=== PATIENT | female | born 1980 | race Caucasian/White ===

== ENCOUNTER 2020-09-23 11:59 | Outpatient (CLI) | payer OTHER, SELFPAY ==
--- NOTE | ~2020-09-23 | MM_ITS ---
EXAMINATION: MM screening be BI w genevieve HISTORY: Screening mammogram TECHNIQUE: Craniocaudal and mediolateral oblique 3-D tomosynthesis images were obtained and synthetic 2-D images were generated. CAD analysis was submitted and interpreted. COMPARISON: No prior mammogram is available for comparison at this institution. BREAST PARENCHYMAL COMPOSITION: The breasts are almost entirely fatty. FINDINGS: There is no evidence of suspicious mass, calcification, or architectural distortion to sugg est malignancy in either breast. There has been no suspicious interval change. IMPRESSION: 1. No mammographic evidence of malignancy. 2. Recommend routine screening mammography in one year. BI-RADS Category 1: Negative Reviewed, dictated and finalized at location A. PROFIT DIRECTOR
== END 2020-09-23 12:00 | disposition home or self-care (01) ==
LOC: ANHIMG 12:01
PROVIDERS: PCP Physician Assistant; Visit Provider Physician Assistant
DX: Z12.31 Encounter for screening mammogram for malignant neoplasm of breast (principal)
CPT/HCPCS: 77063; 77067

== ENCOUNTER 2022-12-20 13:20 | Outpatient (CLI) | payer OTHER, SELFPAY ==
--- NOTE | ~2022-12-20 | MMUS_ITS ---
EXAMINATION: MM diagnostic be BI w genevieve, US breast LT limited HISTORY: Palpable left breast lump TECHNIQUE: Additional 3-D tomosynthesis images of the breasts were performed and synthetic 2-D images were generated. CAD analysis was submitted and interpreted. High resolution Limited left breast ultr asound was performed. COMPARISON: No prior studies for comparison. BREAST PARENCHYMAL COMPOSITION: BREAST PARENCHYMAL COMPOSITION: There are scattered areas of fibroglandular density. FINDINGS: MAMMOGRAPHIC FINDINGS: There are no suspicious masses, calcifications or architectural distortion. No suspicious interval ch [place]. ULTRASOUND: Limited left breast ultrasound: At 2:30, 5 cm from the nipple, there is a normal-appearing 8 mm intra mammary lymph node. No suspicious masses to suggest malignancy. IMPRESSION: 1. No evidence for malignancy in either breast. Benign finding. 2. Routine yearly screening mammogram and regular clinical breast examination are recommended. BI-RADS Category 2: Benign finding(s). Reviewed, dictated and finalized at location [facility]. IMPRESSION: 1. No evidence for malignancy in either breast. Benign finding. 2. Routine yearly screening mammogram and regular clinical breast examination a re recommended. BI-RADS Category 2: Benign finding(s).
== END 2022-12-20 13:21 | disposition home or self-care (01) ==
LOC: ANHIMG 13:26
PROVIDERS: PCP Physician Assistant; Visit Provider Physician Assistant
DX: G56.03 Carpal tunnel syndrome, bilateral upper limbs (principal); N63.20 Unspecified lump in the left breast, unspecified quadrant
CPT/HCPCS: 76642; 77062; 77066; G0279

== ENCOUNTER 2023-01-18 10:06 | Outpatient (CLI) | payer OTHER, SELFPAY ==
--- NOTE | 2023-01-18 11:00 | NEURO_ITS ---
Impression: # Complains of pain in both hands, right more than left. # Bilateral Carpal Tunnel Syndrome. # Right ulnar neuropathy across the elbow. # Abnormal needle/EMG exam. Nerve Conduction Studies Anti Sensory Summary Table Stim Site NR Peak (ms) P-T Amp (?V) Site1 Site2 Delta-P (ms) Dist (cm) Bryn (m/s) Left Median Anti Sensory (2-3nd Digit) Wrist 5.9 16.3 Wrist 2-3nd Digit 5.9 14.0 24 Wrist 4.5 7.2 Wrist 2-3nd Digit 5.9 14.0 24 Right Median Anti Sensory (2-3nd Digit) Wrist 5.6 10.7 Wrist 2-3nd Digit 5.6 14.0 25 Wrist 7.0 17.5 Wrist 2-3nd Digit 5.6 14.0 25 Left Radial Anti Sensory (Base 1st Digit) Wrist 1.7 64.7 Wrist Base 1st Digit 1.7 0.0 Right Radial Anti Sensory (Base 1st Digit) Wrist 2.0 21.4 Wrist Base 1st Digit 2.0 0.0 Left Ulnar Anti Sensory (5th Digit) Wrist 2.3 56.7 Wrist 5th Digit 2.3 14.0 61 Right Ulnar Anti Sensory (5th Digit) Wrist 2.8 48.6 Wrist 5th Digit 2.8 14.0 50 Motor Summary Table Stim Site NR Onset (ms) O-P Amp (mV) Site1 Site2 Delta-0 (ms) Dist (cm) Bryn (m/s) Left Median Motor (Abd Poll Brev) Wrist 5.3 1.3 Elbow Wrist 4.6 29.0 63 Elbow 9.9 1.8 Right Median Motor (Abd Poll Brev) Wrist 4.1 4.2 Elbow Wrist 5.4 29.0 54 Elbow 9.5 2.3 Left Ulnar Motor (Abd Dig Minimi) Wrist 2.3 4.6 A Elbow Wrist 4.7 29.0 62 A Elbow 7.0 4.6 Right Ulnar Motor (Abd Dig Minimi) Wrist 2.5 7.5 A Elbow Wrist 5.5 29.0 53 A Elbow 8.0 5.7 B Elbow Wrist 3.8 21.0 55 B Elbow 6.3 5.2 F Wave Studies NR F-Lat (ms) L-R F-Lat (ms) Left Median (Mrkrs) (Abd Poll Brev) 30.12 1.46 Right Median (Mrkrs) (Abd Poll Brev) 28.65 1.46 Left Ulnar (Mrkrs) (Abd Dig Min) 26.41 0.26 Right Ulnar (Mrkrs) (Abd Dig Min) 26.67 0.26 EMG Side Muscle Nerve Root Ins Act Fibs Amp Dur Recrt Comment Right 1stDorInt Ulnar C8-T1 Nml Nml Nml Nml Nml Right Ext Indicis Radial (Post Int) C7-8 Nml Nml Nml Nml Nml Right Ext Digitorum Radial (Post Int) C7-8 Nml Nml Nml Nml Nml Right BrachioRad Radial C5-6 Nml Nml Nml Nml Nml Right PronatorTeres Median C6-7 Nml Nml Nml Nml Nml Right Abd Poll Brev Median C8-T1 Nml Nml Nml >12ms Reduced Left 1stDorInt Ulnar C8-T1 Nml Nml Nml Nml Nml Left Ext Indicis Radial (Post Int) C7-8 Nml Nml Nml Nml Nml Left Ext Digitorum Radial (Post Int) C7-8 Nml Nml Nml Nml Nml Left BrachioRad Radial C5-6 Nml Nml Nml Nml Nml Left PronatorTeres Median C6-7 Nml Nml Nml Nml Nml Left Abd Poll Brev Median C8-T1 Nml Nml Nml >12ms Reduced Right ABD Dig Min Ulnar C8-T1 Nml Nml Nml >12ms Reduced Left ABD Dig Min Ulnar C8-T1 Nml Nml Nml Nml Nml MTDD
== END 2023-01-18 10:07 | disposition home or self-care (01) ==
LOC: ANHNEURO 10:07
PROVIDERS: PCP Physician Assistant; Visit Provider Physician Assistant
DX: G56.03 Carpal tunnel syndrome, bilateral upper limbs (principal); G56.21 Lesion of ulnar nerve, right upper limb
CPT/HCPCS: 95886; 95911

== ENCOUNTER 2023-07-13 22:05 | Emergency (ER) | payer OTHER, SELFPAY ==
--- NOTE | ~2023-07-13 | CT_ITS ---
CT of the Abdomen and Pelvis: Indication: Vaginal bleeding Technique: 2.5 mm axial scans were obtained through the abdomen and pelvis following intravenous adm inistration of 100 cc of Omnipaque 350. Dose reduction technique was used on this scan by utilizing a utomated exposure control and iterative reconstruction technique. The dose-length product (DLP) was 4 14.25 mGy-cm. COMPARISON: 04/10/2018 Findings: Scans through the lung bases are unremarkable. The liver, spleen, pancreas, adrenals and kidneys are within normal limits. Gallbladder is somewhat d istended, and there is dilatation of the proximal and mid common bile duct to 13 mm, with abrupt tape ring distally. No evidence of aortic aneurysm. No lymphadenopathy. Questionable mild wall thickening of the sigmoid colon/rectum. No bowel obstruction. No abscess or fr ee air. Images through the pelvis were performed. Urinary bladder unremarkable. No adnexal mass seen. Patient is status post hysterectomy. No ascites. Impression: Questionable mild wall thickening of the sigmoid colon/rectum. Correlate for infectious/inflammatory colitis. Distended gallbladder with dilatation of the proximal to mid common bile duct, with abrupt tapering d istally. No obstructing mass clearly evident on this exam. Findings are similar, though somewhat more pronounced, as compared to prior exam dated 04/10/2018, and therefore may be chronic in nature. Corre late with LFTs. Reviewed, dictated and finalized at [facility]. Impression: Questionable mild wall thickening of the sigmoid colon/rectum. Correlate for in fectious/inflammatory colitis. Distended gallbladder with dilatation of the proximal to mid common bile duct, with abrupt tapering distally. No obstructing mass clearly evident on this exam . Findings are similar, though somewhat more pronounced, as compared to prior e xam dated 04/10/2018, and therefore may be chronic in nature. Correlate with LFT s.
[2023-07-13 22:26] VITALS: BP 88/57; PULSE 120; RESP 16; TEMP 37.2; O2SAT 99
[2023-07-13 23:32] VITALS: BP 87/50; PULSE 119; RESP 20; O2SAT 98
--- NOTE | 2023-07-14 00:40 | ED.FEMALEGU ---
HPI - Female Genitourinary General Chief complaint: Vaginal Bleeding <Tara Welch APRN - Last Filed: 07/14/23 13:35> Stated complaint: vaginal bleeding <Tara Welch APRN - Last Filed: 07/14/23 13:35> Time Seen by Provider: 07/13/23 23:51 <Tara Welch APRN - Last Filed: 07/14/23 13:35> Source: patient <Tara Welch APRN - Last Filed: 07/14/23 13:35> Mode of arrival: ambulatory <Tara Welch APRN - Last Filed: 07/14/23 13:35> Limitations: no limitations <Tara Welch APRN - Last Filed: 07/14/23 13:35> History of Present Illness HPI Narrative: 43-year-old female presents today status post coitus with complaints of vaginal bleeding. Patient has a history of a hysterectomy in 2006 with cervix removed. Patient states she had sexual intercourse today for the first time in 3 years. During sexual intercourse there was no pain but she had noticed some bleeding afterwards. Did go to use the bathroom and felt like she was peeing on herself with blood coming out and clots. Per patient she has been through multiple pads prior to arrival. Since arrival she has moderate amount of bleeding on the pad. Pulse in the 120s pressures 80s systolic. Patient denies any dizziness or lightheadedness at this time but feels like it is pouring out of her when she stands up. <Tara Welch APRN - Last Filed: 07/14/23 13:35> Related Data Home medications: Home Medications Medication Instructions Recorded Confirmed aspirin 81 mg tablet,delayed 81 mg PO DAILY 09/05/19 10/14/19 release (Adult Aspirin Regimen) buprenorphine 8 mg-naloxone 2 mg 1 tablet sublingual BID 09/05/19 10/14/19 sublingual tablet mecobalamin (vitamin B12) 1,000 1,500 mcg sublingual DAILY 09/05/19 10/14/19 mcg disintegrating tablet,sublingual sertraline 100 mg tablet (Zoloft) 100 mg PO DAILY 09/05/19 10/14/19 biotin 10,000 mcg capsule 10,000 mcg PO DAILY 10/01/19 10/14/19 <Tara Welch APRN - Last Filed: 07/14/23 13:35> Allergies/Adverse reactions: Allergies Allergy/AdvReac Type Severity Reaction Status Date / Time alcohol Allergy Intermediate HIVES Verified 11/12/19 10:45 <Tara Welch APRN - Last Filed: 07/14/23 13:35> Review of Systems Review of Systems: All systems reviewed & are unremarkable except as noted in HPI and below <Tara Welch APRN - Last Filed: 07/14/23 13:35> PMFSH Past Medical History Medical History: Medical History (Updated 07/14/23 @ 06:52 by Alex Craig MD) Anxiety Depression History of opioid abuse PTSD (post-traumatic stress disorder) <Tara Welch APRN - Last Filed: 07/14/23 13:35> Surgical History Surgical History: Surgical History History of 2 sections History of eye surgery History of hysterectomy 1998 1999 History of tubal ligation <Tara Welch APRN - Last Filed: 07/14/23 13:35> Family History Family History: Family History Father COPD (chronic obstructive pulmonary disease) Diabetes mellitus Sibling Depression Unknown Diabetes mellitus Hypertension Cancer <Tara Welch APRN - Last Filed: 07/14/23 13:35> Social History Social History: Social History Smoking packs per day: 2 Smoking cigarettes per day: 40.0 Years smoked: 20 Smoking pack-years: 40.00 Smoking status: Former smoker Tobacco type: cigarettes Alcohol intake: never Living arrangements: with roommate(s) Occupation/Education: unemployed <Tara Welch APRN - Last Filed: 07/14/23 13:35> Exam Const: General: cooperative, healthy appearing, comfortable, no acute distress and well developed <Tara Welch APRN - Last Filed: 07/14/23 13:35> Orientation/consciousness: patient oriented x3 <Tara Welch APRN - Last Andrés
[2023-07-14] MEDS: SODIUM CHLORIDE 0.9% IV 2,000 ML 999 ML IV CONT (00:42)
[2023-07-14] MEDS: KETOROLAC 30 MG/ML VIAL (*BKC) IV PUSH (00:43)
[2023-07-14 00:47] LABS: Alanine Aminotransferase 15 U/L (6-35); Albumin Level 3.6 g/dL (3.5-5.1); Alkaline Phosphatase 35 U/L (38-126); Anion Gap 5 mmol/L (8-16); Aspartate Amino Transferase 22 U/L (14-36); Blood Urea Nitrogen 14 mg/dL (7-17); Carbon Dioxide 28 mmol/L (22-30); Chloride 100 mmol/L (98-107); Estimated CRCL calculation 47 ml/min; Estimated Glomerular Filt Rate 41; Glucose 113 mg/dL (65-110); Potassium 3.7 mmol/L (3.4-5.0); Sodium 133 mmol/L (137-145)
[2023-07-14 01:08] LABS: INR 1.2; Partial Thromboplastin Time 30.6 SECONDS (22.3-36.8); Prothrombin Time 15.7 Seconds (11.1-14.7)
[2023-07-14 01:23] LABS: Basophils Absolute Auto 0.1 K/mm3 (0.0-0.1); Basophils Percent Auto 0.4 % (0.2-1.2); Eosinophils Percent Auto 0.2 % (0-4.4); Hematocrit 32.3 % (37.0-47.0); Hemoglobin 10.8 g/dL (12.0-15.0); Immature Granulocyte Percent A 0.8 % (0-0.5); Lymphocytes Absolute Auto 0.35 K/mm3 (0.9-3.2); Lymphocytes Percent Auto 2.7 % (18.3-44.2); Mean Corpuscular HGB Conc 33.4 g/dl (32-36); Mean Corpuscular Hemoglobin 30.7 pg (26-34); Mean Corpuscular Volume 91.8 fl (80-100); Mean Platelet Volume 12.3 fl (7.4-10.4); Monocytes Absolute Auto 0.5 K/mm3 (0.1-0.6); Monocytes Percent Auto 3.6 % (2.6-8.5); Neutrophils Absolute Auto 11.7 K/mm3 (1.3-6.7); Neutrophils Percent Auto 92.3 % (45.5-73.1); Platelet Count Result 139 k/mm3 (150-375); Red Blood Count 3.52 M/mm3 (4.2-5.4); Red Cell Distribution Width 13.5 % (11.5-14.5); White Blood Count 12.7 K/mm3 (4.5-10.0)
[2023-07-14 02:57] VITALS: BP 94/66; PULSE 84; RESP 16; O2SAT 100
[2023-07-14] MEDS: LACTATED RINGERS 1,000 ML 999 ML IV CONT (05:03)
[2023-07-14 06:56] VITALS: BP 92/50; PULSE 100; RESP 16; O2SAT 98
== END 2023-07-14 06:57 | disposition home or self-care (01) ==
PROVIDERS: Emergency Provider Nurse Practitioner Family; PCP Physician Assistant
DX: S39.023A Laceration of muscle, fascia and tendon of pelvis, initial encounter (principal); F41.9 Anxiety disorder, unspecified; F32.A Depression, unspecified; F43.10 Post-traumatic stress disorder, unspecified; Z87.891 Personal history of nicotine dependence; Z90.710 Acquired absence of both cervix and uterus; Z79.82 Long term (current) use of aspirin; X58.XXXA Exposure to other specified factors, initial encounter
CPT/HCPCS: 36415; 74177; 80053; 85025; 85610; 85730; 86850; 86880; 86900; 86901; 86902; 96361; 96374; 99284; J1885; J7030; J7120; Q9967

== ENCOUNTER 2024-08-18 13:32 | Emergency (ER) | payer OTHER, SELFPAY ==
--- NOTE | ~2024-08-18 | XR_ITS ---
PA, oblique, and lateral views of the left thumb CLINICAL HISTORY: Laceration FINDINGS: No acute fracture or dislocation seen. Accessory ossicles are noted the first MTP joint and interphalangeal joint of the thumb. Joint spaces are intact. Soft tissues are unremarkable. IMPRESSION: No acute abnormality. Reviewed, dictated and finalized at [facility]. TAIN GUIDE IMPRESSION: No acute abnormality.
[2024-08-18 13:47] VITALS: BP 143/98; PULSE 67; RESP 20; TEMP 36.3; O2SAT 99
--- NOTE | 2024-08-18 15:08 | PC.NURSE ---
pt called for room assignment, not in lobby
== END 2024-08-18 15:20 | disposition left against medical advice (07) ==
LOC: ANHED 15:12
PROVIDERS: Emergency Provider General Practice; PCP Physician Assistant
DX: S61.412A Laceration without foreign body of left hand, initial encounter (principal); X58.XXXA Exposure to other specified factors, initial encounter
CPT/HCPCS: 73140; 99199